=== PATIENT | female | born 1985 | race Caucasian/White ===

== ENCOUNTER → 2017-05-09 | Day surgery (SDC) | payer MEDICAID, OTHER ==
[~2017-05-09] VITALS: Ht 162.6 cm; Wt 86.0 kg
[~2017-05-09] MED LIST: ALBUAER3 INH; BUTATAB6 PO; CHLORHEXIDINE GLUCONATE 2 % 1 PACK (2 CLOTHS) TOPICAL PRN; COLA100C PO; DIVA250T3 PO; DIVA500T3 PO; FAMOTIDINE 20 MG/2 ML VIAL ONE; GLYCOPYRROLATE 1 MG/5 ML SYRINGE IV PUSH ONE; INSULIN HUMAN REGULAR 1,000 UNITS/10 ML VIAL SQ PRN; LACTATED RINGER'S 1000 ML IV PRN; LIDOCAINE 1%/EPINEPHrine 1:100,000 SOLN 30 ML VIAL ONE; METOPROLOL TARTRATE 25 MG TAB PO PRN; MIDAZOLAM HCL 2 MG/2 ML VIAL ONE; MORPHINE SULFATE 4 MG/ML INJ ONE; NEOSTIGMINE 3 MG/3 ML SYR IV ONE; ONDA1TAB16 PO; ONDANSETRON HCL 4 MG/2 ML VIAL IV PUSH ONE; PERC5TAB12 PO; POVIDONE IODINE 5% (ANTISEPSIS KIT) 4 APPLICATIONS EACH NARE PRN; PREN29TA PO; PROM25TA10 PO; PROMETHAZINE INJ 25 MG/ML VIAL ONE; PROPOFOL 200 MG/20 ML AMP IV ONE; RIZA10TA2 PO; SODIUM CHLORID 0.9% 500 ML IV PRN; SODIUM CHLORIDE 0.9% INJ 100 ML ONE; ceFAZolin 1,000 MG/NS 100 ML IV SCH; ceFAZolin INJ 1,000 MG VIAL ONE; fentaNYL CITRATE 250 MCG/5 ML AMP ONE
[2017-05-09 08:40] VITALS: PULSE 97
--- NOTE | 2017-05-09 08:52 | PD.OP ---
Operative Report Date of Surgery: May 09, 2017 Preoperative Diagnosis: (1) Secondary dysmenorrhea (2) Dyspareunia in female not due to substance or known physiological condition Postoperative Diagnosis: (1) Secondary dysmenorrhea (2) Dyspareunia in female not due to substance or known physiological condition Procedure: Diagnostic laparoscopy Anesthesia: Jeny Aguilera/ Dr. Martin ALONZO Surgeon: Analia Mccracken Box Nailer(s): Julia Virgen Surgeon: n/a Operation and Findings: Indications: Patient has had secondary dysmenorrhea and dyspareunia since Essure sterilization. Findings: Normal pelvis. Adhesions of cecum to anterior abdominal wall. Essure devices were not visible. Procedure: Patient was placed supine for induction of general anesthesia, then placed in low stirrups and prepped and draped. Using an open-sided speculum, the cervix was grasped with a single tooth tenaculum and Hulka manipulator inserted. After re-gloving, a Veris needle was inserted into a 5mm umbilical incision. # liters of CO2 were instilled without difficulty. The trocar and port were introduced. A camera revealed normal peritoneum, and uterus. A second trocar of 5mm was introduced in the left lower quadrant using transillumination and direct visualization to avoid large blood vessels. Using a probe the pelvic organs were inspected, as well as the cul-de-sac. Photos were taken. The procedure being complete the pneumoperitoneum, was released and the ports removed. The incisions were closed with 4-0 Monocryl and Dermabond was applied. The manipulator was removed from the vagina and the cervix inspected for hemostasis. She was washed, undraped and laid supine. The patient was extubated and transferred to the recovery room awake and breathing on her own. Sponge, needle and instrument counts were normal. Analia Mccracken MD May 09, 2017 08:51
[2017-05-09 10:08] VITALS: BP 104/56; PULSE 78; RESP 16; TEMP 97.9; O2SAT 99
== END | disposition home or self-care (01) ==
LOC: PHSDC 06:17 → EDSTATUS 07:30
PROVIDERS: ATTEND Obstetrics & Gynecology
DX: N94.5 Secondary dysmenorrhea (principal); N94.12 Deep dyspareunia; N73.6 Female pelvic peritoneal adhesions (postinfective); J45.909 Unspecified asthma, uncomplicated; I47.1 Supraventricular tachycardia; G43.909 Migraine, unspecified, not intractable, without status migrainosus
CPT/HCPCS: J0690; J2250; J2270; J2405; J2550; J2710; J3010; J7120